=== PATIENT | male | born 1995 | race Caucasian/White ===

== ENCOUNTER 2022-01-14 10:33 | Emergency (ER) | payer BC, SELFPAY ==
[2022-01-14 10:38] VITALS: BP 131/70; PULSE 76; RESP 18; TEMP 37.1; O2SAT 99
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
[2022-01-14] MEDS: Cephalexin 500 MG CAP PO (11:14)
== END 2022-01-14 11:21 | disposition home or self-care (01) ==
PROVIDERS: Emergency Provider Emergency Medicine
DX: L03.113 Cellulitis of right upper limb (principal)
CPT/HCPCS: 99283; 99284